=== PATIENT | male | born 1955 | race Caucasian/White ===

== ENCOUNTER 2022-01-24 10:26 | Emergency (ER) | payer OTHER ==
[~2022-01-24] VITALS: Ht 175.3 cm; Wt 99.8 kg
[2022-01-24 11:30] VITALS: BP_SYST 137
[2022-01-24] MEDS ORDERED: NIRM1TAB PO (11:40)
[2022-01-24 11:58] VITALS: BP_SYST 137
== END 2022-01-24 11:58 | disposition home or self-care (01) ==
LOC: SED 10:26
DX: U07.1 COVID-19 (principal); R50.9 Fever, unspecified; R09.89 Other specified symptoms and signs involving the circulatory and respiratory systems; Z79.899 Other long term (current) drug therapy
CPT/HCPCS: 99283